=== PATIENT | female | born 2000 | race Caucasian/White ===

== ENCOUNTER 2022-12-08 13:47 | Emergency (ER) | payer OTHER ==
[2022-12-08 14:01] VITALS: BP 139/91; PULSE 98; RESP 19; TEMP 98.9; BMI 21.9
== END 2022-12-08 16:30 | disposition home or self-care (01) ==
LOC: FER 13:47
PROC: 0H98XZZ Drainage of Buttock Skin, External Approach (ICD-10-PCS; principal; 2022-12-08)
DX: L02.31 Cutaneous abscess of buttock (principal)
CPT/HCPCS: 99283-25